=== PATIENT | male | born 1935 | race Asian ===

== ENCOUNTER 2019-01-29 01:21 | Emergency (ER) | payer OTHER, BC ==
[~2019-01-29] VITALS: Ht 170.2 cm; Wt 68.9 kg
[2019-01-29 01:33] VITALS: Ht 170.2 cm; Wt 68.9 kg
[2019-01-29 02:14] VITALS: BP 182/105
== END 2019-01-29 02:14 | disposition home or self-care (01) ==
LOC: ED 01:21
DX: T63.441A Toxic effect of venom of bees, accidental (unintentional), initial encounter (principal); L03.114 Cellulitis of left upper limb; I10 Essential (primary) hypertension; E11.9 Type 2 diabetes mellitus without complications; Y92.89 Other specified places as the place of occurrence of the external cause

== ENCOUNTER 2019-04-21 20:52 | Emergency (ER) | payer OTHER, BC ==
[~2019-04-21] VITALS: Ht 170.2 cm; Wt 67.1 kg
[2019-04-21 21:02] VITALS: Ht 170.2 cm; Wt 67.1 kg
[2019-04-21 21:50] LABS: BASOPHIL % 0.9 % (0-2); PLATELET COUNT 142 x10^3mcL (130-400); RED CELL DISTRIBUTION WIDTH 13.5 % (11.5-14.5)
[2019-04-21 22:01] LABS: CALCIUM 8.7 mg/dL (8.5-10.1); CARBON DIOXIDE 29.9 mmol/L (21-32); CHLORIDE SERUM 104 mmol/L (98-107); CREATININE SERUM 1.2 mg/dL (0.7-1.3); GLUCOSE SERUM 281 mg/dL (74-106); POTASSIUM SERUM 3.8 mmol/L (3.5-5.1); SODIUM SERUM 141 mmol/L (136-145)
[2019-04-21 22:47] VITALS: BP 134/97
== END 2019-04-21 22:47 | disposition home or self-care (01) ==
LOC: ED 20:52
PROVIDERS: Emergency Medicine
DX: E11.65 Type 2 diabetes mellitus with hyperglycemia (principal); I10 Essential (primary) hypertension
CPT/HCPCS: 36415; 82962

== ENCOUNTER 2019-07-29 19:47 | Emergency (ER) | payer OTHER, BC ==
[~2019-07-29] VITALS: Ht 170.2 cm; Wt 66.2 kg
[2019-07-29 19:58] VITALS: Ht 170.2 cm; Wt 66.2 kg
[2019-07-29 21:34] LABS: CALCIUM 8.5 mg/dL (8.5-10.1); CARBON DIOXIDE 32.7 mmol/L (21-32); CHLORIDE SERUM 98 mmol/L (98-107); CREATININE SERUM 1.2 mg/dL (0.7-1.3); GLUCOSE SERUM 174 mg/dL (74-106); POTASSIUM SERUM 3.3 mmol/L (3.5-5.1); SODIUM SERUM 136 mmol/L (136-145)
[2019-07-29 21:38] LABS: ALKALINE PHOSPHATASE 63 U/L (46-116); ALT/SGPT 17 U/L (16-63); AST/SGOT 17 U/L (15-37); BASOPHIL % 0.1 % (0-2); BILIRUBIN TOTAL 0.9 mg/dL (0.20-1.00); PLATELET COUNT 171 x10^3mcL (130-400); RED CELL DISTRIBUTION WIDTH 14.2 % (11.5-14.5)
[2019-07-29 21:39] LABS: ALBUMIN 3.1 g/dL (3.4-5.0)
[2019-07-29 23:31] VITALS: BP 113/84
== END 2019-07-29 23:31 | disposition home or self-care (01) ==
LOC: ED 19:47
PROVIDERS: Emergency Medicine
DX: J06.9 Acute upper respiratory infection, unspecified (principal); I10 Essential (primary) hypertension; E11.9 Type 2 diabetes mellitus without complications; E78.00 Pure hypercholesterolemia, unspecified
CPT/HCPCS: 36415; Q0092